=== PATIENT | male | born 1990 ===

== ENCOUNTER 2018-05-12 00:04 | Emergency (ER) | payer OTHER ==
[2018-05-12 00:38] VITALS: BMI 28.7
[2018-05-12] MEDS ORDERED: Oxycodone/Acetaminophen 5/325 mg Tab PO STA (00:38)
[2018-05-12 00:39] VITALS: TEMP 98.2; O2SAT 99
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
[2018-05-12 01:41] VITALS: BP 151/89; PULSE 75; RESP 17
== END 2018-05-12 01:25 | disposition home or self-care (01) ==
LOC: ED 00:04
DX: K02.9 Dental caries, unspecified (principal)